=== PATIENT | female | born 1960 | race African-American/Black ===

== ENCOUNTER 2022-11-06 12:21 | Inpatient (IN) | payer OTHER ==
[2022-11-06 13:04] VITALS: BMI 24.2
[2022-11-06] MEDS ORDERED: IBUPROFEN 400 MG TABLET (FP) PO PRN (13:32)
[2022-11-06] MEDS ORDERED: POLYETHYLENE GLYCOL (HEALTHYLAX) 3350 17 GM PACKET PO PRN (13:32)
[2022-11-06] MEDS ORDERED: ONDANSETRON *ODT* 4 MG TABLET SL PRN (13:32)
[2022-11-06] MEDS ORDERED: BENZONATATE 200 MG CAPSULE PO PRN (13:32)
[2022-11-06] MEDS ORDERED: MAG HYDROX/AL HYDROX/SIMETH 30 ML UNIT-DOSE CUP PO PRN (13:32)
[2022-11-06] MEDS ORDERED: P-EPHED 60MG/TRIPROLIDI 2.5MG TABLET PO PRN (13:32)
[2022-11-06] MEDS ORDERED: MAGNESIUM HYDROX 2400MG/30ML ORAL SUSPENSION 30 ML CUP PO PRN (13:32)
[2022-11-06] MEDS ORDERED: BISMUTH SUBSALICYLATE 262 MG/15 ML BTL PO PRN (13:32)
[2022-11-06] MEDS ORDERED: LOPERAMIDE HCL 2 MG CAPSULE PO PRN (13:32)
[2022-11-06] MEDS ORDERED: BENZOCAINE/MENTHOL (CHLORASEPTIC ) LOZENGE MM PRN (13:32)
[2022-11-06] MEDS ORDERED: ACETAMINOPHEN 325 MG TABLET (FP) PO PRN (13:32)
[2022-11-06] MEDS ORDERED: hydrOXYzine PAMOATE 25 MG CAPSULE (FP) PO PRN (13:32)
[2022-11-06] MEDS ORDERED: guaiFENesin 600 MG TABLET.ER (FP) PO PRN (13:32)
[2022-11-06] MEDS ORDERED: IBUPROFEN 600 MG TABLET (FP) PO PRN (13:32)
[2022-11-06] MEDS ORDERED: DICYCLOMINE HCL 10 MG CAPSULE PO PRN (13:32)
[2022-11-06] MEDS: METHOCARBAMOL 500 MG TABLET PO PRN (20:51)
[2022-11-06] MEDS ORDERED: cloNIDine HCL 0.1 MG TABLET PO ONE (20:56)
[2022-11-06] MEDS ORDERED: diazePAM 5 MG TABLET PO PRN (21:58)
[2022-11-06] MEDS ORDERED: MELATONIN 5 MG TABLETS PO SCH (22:00)
[2022-11-06] MEDS: diazePAM 5 MG TABLET PO SCH (22:28)
[2022-11-06] MEDS: THIAMINE HCL 100 MG TABLET (FP) PO SCH (22:28)
[2022-11-07] MEDS: diazePAM 5 MG TABLET PO SCH ×4 (05:45→22:13)
[2022-11-07] MEDS: PRENATAL VITAMINS W/ FOLIC ACID TABLET (FP) PO SCH (10:30)
[2022-11-07] MEDS: METHOCARBAMOL 500 MG TABLET PO PRN (10:31)
[2022-11-07 12:13] LABS: HEMATOCRIT 36.8 % (32.4-45.2); HEMOGLOBIN 12.8 GM/dL (10.7-15.3); MCH 34.5 pg (25.7-33.7); MCHC 34.9 g/dl (32.0-36.0); MEAN CELL VOLUME 98.9 fl (80-96); MEAN PLT VOLUME 8.1 fl (7.5-11.1); PLATELET COUNT 152 10^3/uL (134-434); RBC 3.72 M/mm3 (3.60-5.2); RDW 14.1 % (11.6-15.6); WHITE BLOOD COUNT 5.4 K/mm3 (4.0-10.0)
[2022-11-07 12:22] LABS: CHLORIDE 90 mmol/L (98-107); SODIUM 136 mmol/L (136-145)
[2022-11-07 12:58] LABS: BLOOD UREA NITROGEN 5.7 mg/dL (7-18)
[2022-11-07 13:01] LABS: ALBUMIN 2.8 g/dl (3.4-5.0)
[2022-11-07 13:02] LABS: CALCIUM 7.6 mg/dL (8.5-10.1); CO2 32 mmol/L (21-32); GLUCOSE,RANDOM 144 mg/dL (74-106)
[2022-11-07 13:04] LABS: SGOT/AST 206 U/L (15-37); SGPT/ALT 45 U/L (13-61)
[2022-11-07 13:06] LABS: BILIRUBIN,TOTAL 3.6 mg/dL (0.2-1); TOT PROT 6.6 g/dl (6.4-8.2)
[2022-11-07 13:07] LABS: ALK PHOS 143 U/L (45-117)
[2022-11-07 13:22] LABS: ANION GAP 13 MMOL/L (8-16); POTASSIUM 2.9 mmol/L (3.5-5.1)
[2022-11-07] MEDS ORDERED: POTASSIUM CHLORIDE ORAL LIQUID 20 MEQ/15 ML PO ONE ×2 (14:00→18:00)
[2022-11-07] MEDS: THIAMINE HCL 100 MG TABLET (FP) PO SCH (22:12)
[2022-11-07] MEDS: CALCIUM 250MG/VIT-D 125 UNITS 1 COMBO TABLET PO SCH (22:12)
[2022-11-07] MEDS: MIRTAZAPINE 15 MG TABLET (FP) PO SCH (22:13)
[2022-11-08] MEDS: diazePAM 5 MG TABLET PO SCH ×3 (05:43→22:21)
[2022-11-08] MEDS: CALCIUM 250MG/VIT-D 125 UNITS 1 COMBO TABLET PO SCH ×2 (09:43→22:21)
[2022-11-08] MEDS: PRENATAL VITAMINS W/ FOLIC ACID TABLET (FP) PO SCH (09:43)
[2022-11-08] MEDS: MIRTAZAPINE 15 MG TABLET (FP) PO SCH (22:21)
[2022-11-08] MEDS: THIAMINE HCL 100 MG TABLET (FP) PO SCH (22:21)
[2022-11-09] MEDS: diazePAM 5 MG TABLET PO SCH ×2 (05:49→17:16)
[2022-11-09] MEDS: CALCIUM 250MG/VIT-D 125 UNITS 1 COMBO TABLET PO SCH ×2 (10:03→22:10)
[2022-11-09] MEDS: PRENATAL VITAMINS W/ FOLIC ACID TABLET (FP) PO SCH (10:03)
[2022-11-09 11:21] LABS: BILIRUBIN,TOTAL 1.9 mg/dL (0.2-1)
[2022-11-09] MEDS: LISINOPRIL 20 MG TABLET PO SCH (13:40)
[2022-11-09] MEDS: METHOCARBAMOL 500 MG TABLET PO PRN ×2 (14:32→22:09)
[2022-11-09] MEDS ORDERED: cloNIDine HCL 0.1 MG TABLET PO ONE (21:43)
[2022-11-09] MEDS: THIAMINE HCL 100 MG TABLET (FP) PO SCH (22:07)
[2022-11-09] MEDS: MIRTAZAPINE 15 MG TABLET (FP) PO SCH (22:08)
[2022-11-10] MEDS ORDERED: diazePAM 5 MG TABLET PO ONE (06:00)
[2022-11-10 09:43] VITALS: BP 134/87; PULSE 93; RESP 18; TEMP 98.5
[2022-11-10] MEDS: PRENATAL VITAMINS W/ FOLIC ACID TABLET (FP) PO SCH (09:54)
[2022-11-10] MEDS: LISINOPRIL 20 MG TABLET PO SCH (09:54)
[2022-11-10] MEDS: METHOCARBAMOL 500 MG TABLET PO PRN (09:57)
== END 2022-11-10 10:18 | disposition home or self-care (01) | DRG 897 ==
LOC: YASAS 12:21 → EDSEX 12:21 → Y6N 14:27
PROVIDERS: ADMIT Allergy & Immunology; ATTEND Surgery
PROC: HZ2ZZZZ Detoxification Services for Substance Abuse Treatment (ICD-10-PCS; principal; 2022-11-06)
DX: F10.230 Alcohol dependence with withdrawal, uncomplicated (principal); F10.282 Alcohol dependence with alcohol-induced sleep disorder; F39 Unspecified mood [affective] disorder; I10 Essential (primary) hypertension; K21.9 Gastro-esophageal reflux disease without esophagitis; E87.6 Hypokalemia; E11.9 Type 2 diabetes mellitus without complications; M54.50 Low back pain, unspecified; G89.29 Other chronic pain; R76.11 Nonspecific reaction to tuberculin skin test without active tuberculosis; Z62.810 Personal history of physical and sexual abuse in childhood; Z91.410 Personal history of adult physical and sexual abuse; Z87.11 Personal history of peptic ulcer disease
CPT/HCPCS: 36415; 71046-TC-FY; 80053; 82247; 82746; 83036; 84132; 84450; 85027; 86780; 87635; 87811